=== PATIENT | female | born 1965 ===

== ENCOUNTER 2022-06-30 05:15 | Day surgery (SDC) | payer OTHER ==
[~2022-06-30 05:15] MED LIST: ATORVASTATIN CA40 MG PO; GLIPIZIDE XL5 MG PO; RESTORIL30 M1 PO; SINGULAIR10 MG PO; SYNTHROID75 MCG PO; [UNRECOGNIZED DRUG - OTHER] PO
== END 2022-06-30 23:39 | disposition home or self-care (01) ==
LOC: CIR.AMB 05:15
PROVIDERS: ATTEND Colon & Rectal Surgery
DX: C44.520 Squamous cell carcinoma of anal skin (principal); C20 Malignant neoplasm of rectum; Z20.822 Contact with and (suspected) exposure to COVID-19; Z91.013 Allergy to seafood; J44.9 Chronic obstructive pulmonary disease, unspecified; Z71.6 Tobacco abuse counseling; E11.9 Type 2 diabetes mellitus without complications; F17.210 Nicotine dependence, cigarettes, uncomplicated; Z79.84 Long term (current) use of oral hypoglycemic drugs